=== PATIENT | male | born 1945 | race Caucasian/White ===

== ENCOUNTER → 2024-08-01 | Outpatient (CLI) | payer MEDICARE ==
[~2024-08-01] MED LIST: ASPIR 8181 MG PO; ASPIRIN EC325 MG PO; ASPIRIN81 M1 PO; HYDROCORTISONE10 MG PO; KEPPRA1000 MG PO; LEVETIRACETAM250 MG PO; LISINOPRIL10 MG; LOPRESSOR25 MG PO; METOPROLOL50 MG PO
== END | disposition home or self-care (01) ==
LOC: RAD 11:57
PROVIDERS: ATTEND Chiropractor
DX: M47.816 Spondylosis without myelopathy or radiculopathy, lumbar region (principal); M48.061 Spinal stenosis, lumbar region without neurogenic claudication; M25.552 Pain in left hip; M54.50 Low back pain, unspecified